=== PATIENT | female | born 1945 | race Caucasian/White ===

== ENCOUNTER 2017-10-21 20:51 | Inpatient (IN) | payer OTHER ==
[~2017-10-21] VITALS: Ht 167.6 cm; Wt 94.0 kg
[~2017-10-21 20:51] MED LIST: ANAPROX DS550 M1 PO; ASPIR 8181 M1 PO; AUGMENTIN875 MG PO; BD ULTRA-FINE1 EACH MC; CELEBREX200 MG PO; CELEXA20 MG PO; CITALOPRAM HBR20 MG PO; Ceftin PO; GABAPENTIN300 MG PO; GLIPIZIDE10 MG PO; GLIPIZIDE5 MG PO; GLUCOMETER MC; GLUCOPHAGE XR1000 MG PO; GLUCOPHAGE1000 MG PO; HUMULIN N100 UNITS/ SC; JANUVIA100 MG PO; LIPITOR40 MG PO; LISINOPRIL2.5 MG PO; PRAVACHOL40 MG PO; PRAVASTATIN SOD40 MG PO; Percocet 5/325,Endoc PO; RANITIDINE HCL300 MG PO; TEST STRIPS MC; TIZANIDINE HCL4 MG PO; TRAMADOL HCL50 MG PO; Toradol PO; ULTRAM50 MG PO; VICODIN 5-3001 EACH PO; ZANTAC300 MG PO; ZESTRIL2.5 MG PO; Zestril,Prinivil PO; celeXA PO
[2017-10-21 21:56] LABS: BASOPHIL (%) 0.2 % (0-1); CARBON DIOXIDE (BICARBONATE) 30.3 MEQ/L (20-31); EOSINOPHIL (%) 0.2 % (0-5); HEMATOCRIT 42.7 % (36.0-46.0); HEMOGLOBIN 14.3 G/DL (11.9-15.5); IMMATURE GRANULOCYTE (%) 0.5 % (0.0-0.7); LYMPHOCYTE (%) 9.7 % (15-42); LYMPHOCYTE COUNT 0.9 K/uL (1.0-2.8); MCH 29.8 PG (29.0-34.0); MCHC 33.5 G/DL (30.0-36.0); MONOCYTE COUNT 0.7 K/uL (0-0.8); NEUTROPHIL (%) 82.4 % (45-76); NEUTROPHIL COUNT 7.8 K/uL (1.8-6.4); PLATELET COUNT 158 K/uL (156-360); RBC DIS.WIDTH-CV 12.5 % (11.8-14.6); RBC DIS.WIDTH-SD 41.2 % (39-53); WHITE BLOOD COUNT 9.4 K/uL (4.1-10.2)
[2017-10-21 22:05] LABS: ALBUMIN 3.6 g/dL (3.2-4.8)
[2017-10-21 22:06] LABS: CHLORIDE 93 mEq/L (99-109); POTASSIUM 4.5 mEq/L (3.7-5.4); SODIUM 132 mEq/L (136-147)
[2017-10-21 22:08] LABS: TOTAL PROTEIN 7.2 g/dL (6.4-8.3)
[2017-10-21 22:10] LABS: TOTAL BILIRUBIN 0.6 mg/dL (0.0-1.0)
[2017-10-21 22:11] LABS: ALKALINE PHOSPHATASE 87 IU/L (3-129)
[2017-10-21 22:12] LABS: CREATININE 1.3 mg/dL (0.6-1.3); GFR ESTIMATE (CALCULATED) 43 mL/min/
[2017-10-21 22:13] LABS: AST (GOT) 16 IU/L (2-34); UREA NITROGEN (BUN) 22 mg/dL (9-23)
[2017-10-21 22:14] LABS: ALT (GPT) 17 IU/L (3-49)
[2017-10-21 22:15] LABS: CREATINE KINASE 217 IU/L (1-294); LIPASE 28 U/L (1.0-51.0)
[2017-10-21 22:17] LABS: TROP-I INTERPRETATION NEGATIVE; TROPONIN-I < 0.01 ng/mL (0.0-0.30)
[2017-10-21 22:27] LABS: GLUCOSE 538 mg/dL (70-99)
[2017-10-21] MEDS ORDERED: MOBIC7.5 MG PO (23:18)
[2017-10-21] MEDS ORDERED: PRAVASTATIN SOD40 MG PO (23:18)
[2017-10-21 23:28] LABS: APPEARANCE CLEAR ((CLEAR)); BILIRUBIN NEGATIVE; BLOOD SMALL; COLOR STRAW ((YELLOW)); GLUCOSE (STRIP) >=500; KETONES 5; LEUKOCYTES TRACE; NITRITE NEGATIVE; PROTEIN (STRIP) NEGATIVE; SPECIFIC GRAVITY 1.026 (1.000-1.030); UROBILINOGEN 0.2 MG/DL (0.2-1.0)
[2017-10-21 23:34] LABS: BACTERIA NONE SEEN /HPF; EPITHELIAL CELLS RARE /HPF; MUCUS TRACE /LPF; RED BLOOD CELLS 0-5 /HPF (0-5); UCUL ADDED? NO; WHITE BLOOD CELLS 0-5 /HPF (0-5)
[2017-10-22 05:03] VITALS: BP 164/77
[2017-10-22 08:10] VITALS: BP 185/84
[2017-10-22 11:52] VITALS: BP 150/70
[2017-10-22 16:55] VITALS: BP 129/57
[2017-10-22 17:11] LABS: BASOPHIL (%) 0.3 % (0-1); EOSINOPHIL (%) 0 % (0-5); HEMOGLOBIN 13.8 G/DL (11.9-15.5); IMMATURE GRANULOCYTE (%) 0.4 % (0.0-0.7); LYMPHOCYTE (%) 6.4 % (15-42); LYMPHOCYTE COUNT 0.7 K/uL (1.0-2.8); MCH 28.9 PG (29.0-34.0); MCHC 32.1 G/DL (30.0-36.0); MCV 90.1 FL (83-99); MONOCYTE (%) 6.8 % (3-12); MONOCYTE COUNT 0.7 K/uL (0-0.8); NEUTROPHIL (%) 86.1 % (45-76); PLATELET COUNT 152 K/uL (156-360); RBC DIS.WIDTH-CV 12.7 % (11.8-14.6); RBC DIS.WIDTH-SD 42.1 % (39-53); RED BLOOD COUNT 4.77 M/uL (3.80-5.20); WHITE BLOOD COUNT 10.4 K/uL (4.1-10.2)
[2017-10-22 19:54] VITALS: BP 140/73
[2017-10-22 23:15] VITALS: BP 91/52
[2017-10-23 03:38] VITALS: BP 133/74
[2017-10-23 05:59] LABS: BASOPHIL (%) 0.2 % (0-1); EOSINOPHIL (%) 0 % (0-5); HEMATOCRIT 38.3 % (36.0-46.0); HEMOGLOBIN 12.5 G/DL (11.9-15.5); IMMATURE GRANULOCYTE (%) 0.7 % (0.0-0.7); LYMPHOCYTE (%) 6.6 % (15-42); LYMPHOCYTE COUNT 0.5 K/uL (1.0-2.8); MCH 29.8 PG (29.0-34.0); MCHC 32.6 G/DL (30.0-36.0); MCV 91.4 FL (83-99); MONOCYTE COUNT 0.6 K/uL (0-0.8); NEUTROPHIL (%) 85.5 % (45-76); NEUTROPHIL COUNT 6.9 K/uL (1.8-6.4); PLATELET COUNT 132 K/uL (156-360); RBC DIS.WIDTH-CV 13.1 % (11.8-14.6); RBC DIS.WIDTH-SD 44.2 % (39-53); RED BLOOD COUNT 4.19 M/uL (3.80-5.20); WHITE BLOOD COUNT 8.1 K/uL (4.1-10.2)
[2017-10-23 06:31] LABS: CHLORIDE 101 MEQ/L (99-109); CREATININE 1.6 MG/DL (0.6-1.3); GFR ESTIMATE (CALCULATED) 34 mL/min/; GLUCOSE 366 mg/dL (70-99); POTASSIUM 3.8 MEQ/L (3.7-5.4); SODIUM 137 MEQ/L (136-147); UREA NITROGEN (BUN) 28 mg/dL (9-23)
[2017-10-23 07:58] VITALS: BP 119/60
[2017-10-23 11:49] VITALS: BP 138/63
[2017-10-23 12:50] LABS: CHLORIDE 102 MEQ/L (99-109); CREATININE 1.5 MG/DL (0.6-1.3); GFR ESTIMATE (CALCULATED) 36 mL/min/; GLUCOSE 363 mg/dL (70-99); POTASSIUM 3.7 MEQ/L (3.7-5.4); SODIUM 136 MEQ/L (136-147); UREA NITROGEN (BUN) 27 mg/dL (9-23)
[2017-10-23 16:00] VITALS: BP 119/59
[2017-10-23 20:17] VITALS: BP 141/65
[2017-10-23 23:40] VITALS: BP 168/72
[2017-10-24 03:29] VITALS: BP 127/59
[2017-10-24 05:30] LABS: HEMATOCRIT 35.8 % (36.0-46.0); HEMOGLOBIN 11.5 G/DL (11.9-15.5); MCH 29.1 PG (29.0-34.0); MCHC 32.1 G/DL (30.0-36.0); MCV 90.6 FL (83-99); PLATELET COUNT 117 K/uL (156-360); RBC DIS.WIDTH-CV 12.7 % (11.8-14.6); RBC DIS.WIDTH-SD 42.6 % (39-53); RED BLOOD COUNT 3.95 M/uL (3.80-5.20)
[2017-10-24 05:57] LABS: ALBUMIN 2.6 G/DL (3.2-4.8); ALKALINE PHOSPHATASE 57 IU/L (3-129); ALT (GPT) 25 IU/L (3-49); AST (GOT) 42 IU/L (2-34); CHLORIDE 103 MEQ/L (99-109); CREATININE 1.3 MG/DL (0.6-1.3); GFR ESTIMATE (CALCULATED) 43 mL/min/; POTASSIUM 3.5 MEQ/L (3.7-5.4); SODIUM 137 MEQ/L (136-147); TOTAL BILIRUBIN 0.4 MG/DL (0.0-1.0); TOTAL PROTEIN 5.4 G/DL (6.4-8.3); UREA NITROGEN (BUN) 24 mg/dL (9-23)
[2017-10-24 05:58] LABS: GLUCOSE 176 mg/dL (70-99)
[2017-10-24 08:06] VITALS: BP 144/67
[2017-10-24] MEDS ORDERED: ASPIR 8181 M1 PO (10:26)
[2017-10-24] MEDS ORDERED: HUMULIN N100 UNITS/ SC (10:26)
[2017-10-24] MEDS ORDERED: TRAMADOL HCL50 MG PO (10:27)
[2017-10-24 11:56] VITALS: BP 152/78
[2017-10-24 18:37] VITALS: BP 143/79
[2017-10-24 20:00] VITALS: BP 178/79
[2017-10-25] VITALS (7 sets, daily range): BP systolic 142–184; BP diastolic 60–96
[2017-10-26 01:00] VITALS: BP 150/80
[2017-10-26 03:42] VITALS: BP 111/56
[2017-10-26 06:46] LABS: HEMATOCRIT 31.7 % (36.0-46.0); HEMOGLOBIN 10.7 G/DL (11.9-15.5); MCH 30.1 PG (29.0-34.0); MCHC 33.8 G/DL (30.0-36.0); MCV 89.3 FL (83-99); PLATELET COUNT 135 K/uL (156-360); RBC DIS.WIDTH-CV 12.5 % (11.8-14.6); RBC DIS.WIDTH-SD 41.2 % (39-53); RED BLOOD COUNT 3.55 M/uL (3.80-5.20); WHITE BLOOD COUNT 6.3 K/uL (4.1-10.2)
[2017-10-26 07:16] LABS: ALBUMIN 2.4 G/DL (3.2-4.8); ALKALINE PHOSPHATASE 63 IU/L (3-129); ALT (GPT) 20 IU/L (3-49); CHLORIDE 103 MEQ/L (99-109); GLUCOSE 195 mg/dL (70-99); POTASSIUM 3.5 MEQ/L (3.7-5.4); SODIUM 138 MEQ/L (136-147); TOTAL PROTEIN 4.6 G/DL (6.4-8.3); UREA NITROGEN (BUN) 13 mg/dL (9-23)
[2017-10-26 07:17] LABS: AST (GOT) 20 IU/L (2-34); CREATININE 0.8 MG/DL (0.6-1.3); GFR ESTIMATE (CALCULATED) > 59 mL/min/; TOTAL BILIRUBIN 0.3 MG/DL (0.0-1.0)
[2017-10-26 07:39] VITALS: BP 166/77
[2017-10-26 17:17] VITALS: BP 137/65
[2017-10-26 17:32] LABS: HEMATOCRIT 30.9 % (36.0-46.0); HEMOGLOBIN 9.9 G/DL (11.9-15.5); MCH 28.8 PG (29.0-34.0); MCV 89.8 FL (83-99); PLATELET COUNT 134 K/uL (156-360); RBC DIS.WIDTH-CV 12.6 % (11.8-14.6); RBC DIS.WIDTH-SD 41.2 % (39-53); RED BLOOD COUNT 3.44 M/uL (3.80-5.20); WHITE BLOOD COUNT 5.5 K/uL (4.1-10.2)
[2017-10-26 18:03] LABS: STOOL OCCULT BLD 1ST SPECIMEN POSITIVE
[2017-10-26 18:31] LABS: C DIFF TOXIN NEGATIVE (NEGATIVE)
[2017-10-26 20:25] VITALS: BP 163/76
[2017-10-26 23:55] VITALS: BP 165/74
[2017-10-27] VITALS (27 sets, daily range): BP systolic 71–122; BP diastolic 37–74
[2017-10-27 04:46] LABS: HEMATOCRIT 26.2 % (36.0-46.0); HEMOGLOBIN 8.9 G/DL (11.9-15.5); MCH 29.9 PG (29.0-34.0); MCV 87.9 FL (83-99); RBC DIS.WIDTH-CV 12.4 % (11.8-14.6); RBC DIS.WIDTH-SD 40.1 % (39-53); RED BLOOD COUNT 2.98 M/uL (3.80-5.20)
[2017-10-27 04:51] LABS: PLATELET COUNT 211 K/uL (156-360)
[2017-10-27 04:58] LABS: ALBUMIN 2.4 g/dL (3.2-4.8); CHLORIDE 100 mEq/L (99-109)
[2017-10-27 04:59] LABS: POTASSIUM 4.1 mEq/L (3.7-5.4); SODIUM 137 mEq/L (136-147)
[2017-10-27 05:01] LABS: GLUCOSE 237 mg/dL (70-99)
[2017-10-27 05:04] LABS: ALKALINE PHOSPHATASE 73 IU/L (3-129); CREATININE 0.9 mg/dL (0.6-1.3); GFR ESTIMATE (CALCULATED) > 59 mL/min/
[2017-10-27 05:06] LABS: UREA NITROGEN (BUN) 18 mg/dL (9-23)
[2017-10-27 05:07] LABS: ALT (GPT) 27 IU/L (3-49)
[2017-10-27 05:17] LABS: AST (GOT) 28 IU/L (2-34); TOTAL BILIRUBIN 0.3 mg/dL (0.0-1.0); TOTAL PROTEIN 4.6 g/dL (6.4-8.3)
[2017-10-27 06:32] LABS: ERTH.SED.RATE 51 MM/HR (0-30)
[2017-10-27 08:56] LABS: HEMATOCRIT 22.2 % (36.0-46.0); HEMOGLOBIN 7.4 G/DL (11.9-15.5); MCH 30.1 PG (29.0-34.0); MCHC 33.3 G/DL (30.0-36.0); MCV 90.2 FL (83-99); PLATELET COUNT 165 K/uL (156-360); RBC DIS.WIDTH-CV 12.6 % (11.8-14.6); RBC DIS.WIDTH-SD 41.4 % (39-53); RED BLOOD COUNT 2.46 M/uL (3.80-5.20); WHITE BLOOD COUNT 7.4 K/uL (4.1-10.2)
[2017-10-27 19:18] LABS: HEMATOCRIT 22.9 % (36.0-46.0); HEMOGLOBIN 7.8 G/DL (11.9-15.5)
[2017-10-27 19:19] LABS: MCV 85.4 FL (83-99)
[2017-10-27 20:10] LABS: HEMATOCRIT 22.5 % (36.0-46.0); HEMOGLOBIN 7.8 G/DL (11.9-15.5); MCH 29.3 PG (29.0-34.0); MCHC 34.7 G/DL (30.0-36.0); MCV 84.6 FL (83-99); PLATELET COUNT 174 K/uL (156-360); RBC DIS.WIDTH-CV 14.1 % (11.8-14.6); RBC DIS.WIDTH-SD 43.2 % (39-53); RED BLOOD COUNT 2.66 M/uL (3.80-5.20); WHITE BLOOD COUNT 10.9 K/uL (4.1-10.2)
[2017-10-27 20:22] LABS: INTER. NORMALIZED RATIO 1.2
[2017-10-27 20:25] LABS: PTT 27.4 SEC (25-37)
[2017-10-27 23:37] LABS: HEMOGLOBIN 9.4 G/DL (11.9-15.5); MCH 29.7 PG (29.0-34.0); MCHC 34.8 G/DL (30.0-36.0); MCV 85.4 FL (83-99); NRBC (%) 0.2 /100 WBC (0-0); PLATELET COUNT 158 K/uL (156-360); RBC DIS.WIDTH-SD 43.9 % (39-53); RED BLOOD COUNT 3.16 M/uL (3.80-5.20); WHITE BLOOD COUNT 12.7 K/uL (4.1-10.2)
[2017-10-28] VITALS (19 sets, daily range): BP systolic 92–149; BP diastolic 45–78
[2017-10-28 04:55] LABS: HEMATOCRIT 23.4 % (36.0-46.0); HEMOGLOBIN 8.2 G/DL (11.9-15.5); MCH 29.5 PG (29.0-34.0); MCV 84.2 FL (83-99); NRBC (%) 0.2 /100 WBC (0-0); PLATELET COUNT 152 K/uL (156-360); RBC DIS.WIDTH-CV 14.2 % (11.8-14.6); RBC DIS.WIDTH-SD 43.9 % (39-53); RED BLOOD COUNT 2.78 M/uL (3.80-5.20); WHITE BLOOD COUNT 11.3 K/uL (4.1-10.2)
[2017-10-28 05:12] LABS: CHLORIDE 106 mEq/L (99-109); POTASSIUM 3.6 mEq/L (3.7-5.4); SODIUM 139 mEq/L (136-147)
[2017-10-28 05:14] LABS: GLUCOSE 172 mg/dL (70-99)
[2017-10-28 05:17] LABS: CREATININE 0.8 mg/dL (0.6-1.3); GFR ESTIMATE (CALCULATED) > 59 mL/min/
[2017-10-28 05:18] LABS: UREA NITROGEN (BUN) 18 mg/dL (9-23)
[2017-10-28 08:36] LABS: MAGNESIUM 1.5 mg/dL (1.3-2.7)
[2017-10-28 12:31] LABS: HEMATOCRIT 26.3 % (36.0-46.0); HEMOGLOBIN 9.1 G/DL (11.9-15.5); MCV 86.8 FL (83-99)
[2017-10-28 12:37] LABS: INTER. NORMALIZED RATIO 1.1
[2017-10-28 12:40] LABS: PTT 26.3 SEC (25-37)
[2017-10-28 17:16] LABS: HEMATOCRIT 29.3 % (36.0-46.0); HEMOGLOBIN 10.1 G/DL (11.9-15.5); MCH 29.9 PG (29.0-34.0); MCHC 34.5 G/DL (30.0-36.0); MCV 86.7 FL (83-99); NRBC (%) 0.1 /100 WBC (0-0); PLATELET COUNT 197 K/uL (156-360); RBC DIS.WIDTH-CV 14.6 % (11.8-14.6); RBC DIS.WIDTH-SD 46.5 % (39-53); WHITE BLOOD COUNT 14.9 K/uL (4.1-10.2)
[2017-10-28 17:20] LABS: RED BLOOD COUNT 3.38 M/uL (3.80-5.20)
[2017-10-29] VITALS (23 sets, daily range): BP systolic 131–201; BP diastolic 54–87
[2017-10-29 06:01] LABS: BASOPHIL (%) 0.4 % (0-1); BASOPHIL COUNT 0.1 K/uL (0-0.1); EOSINOPHIL (%) 2.8 % (0-5); EOSINOPHIL COUNT 0.3 K/uL (0-0.3); HEMATOCRIT 26.1 % (36.0-46.0); HEMOGLOBIN 8.7 G/DL (11.9-15.5); IMMATURE GRANULOCYTE (%) 4.7 % (0.0-0.7); LYMPHOCYTE (%) 13.4 % (15-42); LYMPHOCYTE COUNT 1.5 K/uL (1.0-2.8); MCH 28.9 PG (29.0-34.0); MCHC 33.3 G/DL (30.0-36.0); MCV 86.7 FL (83-99); MONOCYTE (%) 5.8 % (3-12); MONOCYTE COUNT 0.7 K/uL (0-0.8); NEUTROPHIL (%) 72.9 % (45-76); NEUTROPHIL COUNT 8.4 K/uL (1.8-6.4); PLATELET COUNT 198 K/uL (156-360); RBC DIS.WIDTH-CV 14.5 % (11.8-14.6); RBC DIS.WIDTH-SD 45.4 % (39-53); RED BLOOD COUNT 3.01 M/uL (3.80-5.20); WHITE BLOOD COUNT 11.5 K/uL (4.1-10.2)
[2017-10-29 06:27] LABS: CHLORIDE 104 MEQ/L (99-109); CREATININE 0.8 MG/DL (0.6-1.3); GFR ESTIMATE (CALCULATED) > 59 mL/min/; GLUCOSE 198 mg/dL (70-99); MAGNESIUM 1.6 mg/dl (1.3-2.7); PHOSPHORUS 3.4 mg/dL (2.5-4.9); SODIUM 138 MEQ/L (136-147); UREA NITROGEN (BUN) 11 mg/dL (9-23)
[2017-10-29 06:29] LABS: POTASSIUM 4.6 MEQ/L (3.7-5.4)
[2017-10-29 20:31] LABS: HEMOGLOBIN 8.5 G/DL (11.9-15.5); MCH 30.1 PG (29.0-34.0); MCV 88.7 FL (83-99); PLATELET COUNT 201 K/uL (156-360); RBC DIS.WIDTH-CV 14.4 % (11.8-14.6); RBC DIS.WIDTH-SD 45.4 % (39-53); RED BLOOD COUNT 2.82 M/uL (3.80-5.20); WHITE BLOOD COUNT 10.3 K/uL (4.1-10.2)
[2017-10-30] VITALS (12 sets, daily range): BP systolic 136–167; BP diastolic 61–82
[2017-10-30 05:31] LABS: HEMATOCRIT 23.8 % (36.0-46.0); HEMOGLOBIN 7.9 G/DL (11.9-15.5); MCH 29.2 PG (29.0-34.0); MCHC 33.2 G/DL (30.0-36.0); MCV 87.8 FL (83-99); PLATELET COUNT 213 K/uL (156-360); RBC DIS.WIDTH-CV 14.2 % (11.8-14.6); RED BLOOD COUNT 2.71 M/uL (3.80-5.20); WHITE BLOOD COUNT 9.7 K/uL (4.1-10.2)
[2017-10-30 05:54] LABS: CHLORIDE 100 MEQ/L (99-109); CREATININE 0.8 MG/DL (0.6-1.3); GFR ESTIMATE (CALCULATED) > 59 mL/min/; GLUCOSE 181 mg/dL (70-99); POTASSIUM 4.2 MEQ/L (3.7-5.4); SODIUM 135 MEQ/L (136-147); UREA NITROGEN (BUN) 6 mg/dL (9-23)
[2017-10-30 20:48] LABS: HEMATOCRIT 23.7 % (36.0-46.0); HEMOGLOBIN 7.8 G/DL (11.9-15.5); MCH 29.3 PG (29.0-34.0); MCHC 32.9 G/DL (30.0-36.0); MCV 89.1 FL (83-99); PLATELET COUNT 219 K/uL (156-360); RBC DIS.WIDTH-CV 14.5 % (11.8-14.6); RBC DIS.WIDTH-SD 45.9 % (39-53); RED BLOOD COUNT 2.66 M/uL (3.80-5.20); WHITE BLOOD COUNT 9.7 K/uL (4.1-10.2)
[2017-10-31] VITALS (7 sets, daily range): BP systolic 123–179; BP diastolic 56–88
[2017-10-31 05:08] LABS: BASOPHIL (%) 0.4 % (0-1); EOSINOPHIL (%) 3.6 % (0-5); EOSINOPHIL COUNT 0.3 K/uL (0-0.3); HEMATOCRIT 23.7 % (36.0-46.0); HEMOGLOBIN 7.8 G/DL (11.9-15.5); IMMATURE GRANULOCYTE (%) 2.1 % (0.0-0.7); LYMPHOCYTE (%) 19.1 % (15-42); LYMPHOCYTE COUNT 1.5 K/uL (1.0-2.8); MCH 29.9 PG (29.0-34.0); MCHC 32.9 G/DL (30.0-36.0); MCV 90.8 FL (83-99); MONOCYTE (%) 7.4 % (3-12); MONOCYTE COUNT 0.6 K/uL (0-0.8); NEUTROPHIL (%) 67.4 % (45-76); NEUTROPHIL COUNT 5.4 K/uL (1.8-6.4); PLATELET COUNT 219 K/uL (156-360); RBC DIS.WIDTH-CV 14.5 % (11.8-14.6); RBC DIS.WIDTH-SD 45.6 % (39-53); RED BLOOD COUNT 2.61 M/uL (3.80-5.20)
[2017-10-31 05:35] LABS: ALBUMIN 2.3 G/DL (3.2-4.8); ALKALINE PHOSPHATASE 41 IU/L (3-129); ALT (GPT) 13 IU/L (3-49); AST (GOT) 10 IU/L (2-34); CHLORIDE 101 MEQ/L (99-109); CREATININE 0.9 MG/DL (0.6-1.3); GFR ESTIMATE (CALCULATED) > 59 mL/min/; GLUCOSE 178 mg/dL (70-99); SODIUM 137 MEQ/L (136-147); TOTAL BILIRUBIN 0.4 MG/DL (0.0-1.0); TOTAL PROTEIN 4.9 G/DL (6.4-8.3); UREA NITROGEN (BUN) 4 mg/dL (9-23)
[2017-10-31 18:02] LABS: C DIFF TOXIN NEGATIVE (NEGATIVE)
[2017-11-01 04:16] VITALS: BP 144/64
[2017-11-01 07:50] LABS: BASOPHIL (%) 0.5 % (0-1); EOSINOPHIL (%) 4.2 % (0-5); EOSINOPHIL COUNT 0.4 K/uL (0-0.3); HEMATOCRIT 24.2 % (36.0-46.0); HEMOGLOBIN 7.7 G/DL (11.9-15.5); LYMPHOCYTE (%) 17.4 % (15-42); LYMPHOCYTE COUNT 1.5 K/uL (1.0-2.8); MCH 28.9 PG (29.0-34.0); MCHC 31.8 G/DL (30.0-36.0); MONOCYTE (%) 6.2 % (3-12); MONOCYTE COUNT 0.5 K/uL (0-0.8); NEUTROPHIL (%) 68.7 % (45-76); NEUTROPHIL COUNT 5.9 K/uL (1.8-6.4); RBC DIS.WIDTH-CV 14.6 % (11.8-14.6); RBC DIS.WIDTH-SD 46.3 % (39-53); RED BLOOD COUNT 2.66 M/uL (3.80-5.20); WHITE BLOOD COUNT 8.6 K/uL (4.1-10.2)
[2017-11-01 07:55] LABS: PLATELET COUNT 285 K/uL (156-360)
[2017-11-01 08:16] LABS: ALBUMIN 2.2 G/DL (3.2-4.8); ALKALINE PHOSPHATASE 43 IU/L (3-129); ALT (GPT) 12 IU/L (3-49); AST (GOT) 10 IU/L (2-34); CHLORIDE 103 MEQ/L (99-109); CREATININE 0.9 MG/DL (0.6-1.3); GFR ESTIMATE (CALCULATED) > 59 mL/min/; GLUCOSE 219 mg/dL (70-99); POTASSIUM 4.5 MEQ/L (3.7-5.4); SODIUM 137 MEQ/L (136-147); TOTAL BILIRUBIN 0.4 MG/DL (0.0-1.0); TOTAL PROTEIN 4.7 G/DL (6.4-8.3); UREA NITROGEN (BUN) 4 mg/dL (9-23)
[2017-11-01 08:23] VITALS: BP 153/72
[2017-11-01 16:28] VITALS: BP 160/68
[2017-11-01 19:39] VITALS: BP 143/65
[2017-11-01 23:51] VITALS: BP 142/79
[2017-11-02 04:18] VITALS: BP 149/74
[2017-11-02 06:09] LABS: ALBUMIN 2.4 G/DL (3.2-4.8); ALKALINE PHOSPHATASE 47 IU/L (3-129); ALT (GPT) 13 IU/L (3-49); AST (GOT) 11 IU/L (2-34); CHLORIDE 102 MEQ/L (99-109); CREATININE 0.8 MG/DL (0.6-1.3); GFR ESTIMATE (CALCULATED) > 59 mL/min/; GLUCOSE 169 mg/dL (70-99); SODIUM 138 MEQ/L (136-147); TOTAL PROTEIN 5.2 G/DL (6.4-8.3); UREA NITROGEN (BUN) 5 mg/dL (9-23)
[2017-11-02 06:11] LABS: TOTAL BILIRUBIN 0.3 MG/DL (0.0-1.0)
[2017-11-02 07:13] LABS: BASOPHIL (%) 0.6 % (0-1); BASOPHIL COUNT 0.1 K/uL (0-0.1); EOSINOPHIL (%) 4.6 % (0-5); EOSINOPHIL COUNT 0.4 K/uL (0-0.3); HEMATOCRIT 24.9 % (36.0-46.0); HEMOGLOBIN 7.8 G/DL (11.9-15.5); LYMPHOCYTE (%) 23.4 % (15-42); LYMPHOCYTE COUNT 1.9 K/uL (1.0-2.8); MCH 28.6 PG (29.0-34.0); MCHC 31.3 G/DL (30.0-36.0); MCV 91.2 FL (83-99); MONOCYTE (%) 5.9 % (3-12); MONOCYTE COUNT 0.5 K/uL (0-0.8); NEUTROPHIL (%) 62.5 % (45-76); NEUTROPHIL COUNT 5.1 K/uL (1.8-6.4); PLATELET COUNT 310 K/uL (156-360); RBC DIS.WIDTH-CV 14.4 % (11.8-14.6); RBC DIS.WIDTH-SD 46.5 % (39-53); RED BLOOD COUNT 2.73 M/uL (3.80-5.20); WHITE BLOOD COUNT 8.2 K/uL (4.1-10.2)
[2017-11-02 09:20] VITALS: BP 164/69
[2017-11-03 00:01] VITALS: BP 141/67
[2017-11-03 06:03] LABS: BASOPHIL (%) 0.3 % (0-1); EOSINOPHIL (%) 3.6 % (0-5); EOSINOPHIL COUNT 0.4 K/uL (0-0.3); HEMATOCRIT 27.2 % (36.0-46.0); HEMOGLOBIN 8.8 G/DL (11.9-15.5); IMMATURE GRANULOCYTE (%) 1.6 % (0.0-0.7); LYMPHOCYTE (%) 8.7 % (15-42); MCH 29.5 PG (29.0-34.0); MCHC 32.4 G/DL (30.0-36.0); MCV 91.3 FL (83-99); MONOCYTE (%) 3.9 % (3-12); MONOCYTE COUNT 0.5 K/uL (0-0.8); NEUTROPHIL (%) 81.9 % (45-76); NEUTROPHIL COUNT 9.4 K/uL (1.8-6.4); PLATELET COUNT 391 K/uL (156-360); RBC DIS.WIDTH-CV 14.6 % (11.8-14.6); RBC DIS.WIDTH-SD 47.5 % (39-53); RED BLOOD COUNT 2.98 M/uL (3.80-5.20); WHITE BLOOD COUNT 11.6 K/uL (4.1-10.2)
[2017-11-03 06:30] LABS: ALBUMIN 2.5 G/DL (3.2-4.8); ALKALINE PHOSPHATASE 52 IU/L (3-129); ALT (GPT) 13 IU/L (3-49); AST (GOT) 11 IU/L (2-34); CHLORIDE 101 MEQ/L (99-109); GFR ESTIMATE (CALCULATED) 58 mL/min/; GLUCOSE 193 mg/dL (70-99); POTASSIUM 4.4 MEQ/L (3.7-5.4); SODIUM 135 MEQ/L (136-147); TOTAL BILIRUBIN 0.4 MG/DL (0.0-1.0); TOTAL PROTEIN 5.3 G/DL (6.4-8.3); UREA NITROGEN (BUN) 8 mg/dL (9-23)
[2017-11-03 07:59] LABS: Estimated Average Glucose 163 mg/dL (70-123); HEMOGLOBIN A1c (GLYCOHEMOGLOB) 7.3 % HGB (Below 5.7)
[2017-11-03 08:19] VITALS: BP 138/69
[2017-11-03 11:14] VITALS: BP 129/68
[2017-11-03 15:29] VITALS: BP 128/60
[2017-11-03 19:41] VITALS: BP 130/60
[2017-11-03 23:20] VITALS: BP 122/81
[2017-11-04 04:59] VITALS: BP 117/64
[2017-11-04 06:27] LABS: BASOPHIL (%) 0.5 % (0-1); EOSINOPHIL (%) 4.7 % (0-5); EOSINOPHIL COUNT 0.4 K/uL (0-0.3); HEMOGLOBIN 8.4 G/DL (11.9-15.5); IMMATURE GRANULOCYTE (%) 1.7 % (0.0-0.7); LYMPHOCYTE COUNT 1.7 K/uL (1.0-2.8); MCH 28.6 PG (29.0-34.0); MCHC 31.1 G/DL (30.0-36.0); MCV 91.8 FL (83-99); MONOCYTE (%) 6.7 % (3-12); MONOCYTE COUNT 0.5 K/uL (0-0.8); NEUTROPHIL (%) 64.4 % (45-76); PLATELET COUNT 364 K/uL (156-360); RBC DIS.WIDTH-CV 14.6 % (11.8-14.6); RBC DIS.WIDTH-SD 48.1 % (39-53); RED BLOOD COUNT 2.94 M/uL (3.80-5.20); WHITE BLOOD COUNT 7.7 K/uL (4.1-10.2)
[2017-11-04 06:34] LABS: CHLORIDE 103 MEQ/L (99-109); GFR ESTIMATE (CALCULATED) 58 mL/min/; GLUCOSE 140 mg/dL (70-99); POTASSIUM 4.1 MEQ/L (3.7-5.4); SODIUM 138 MEQ/L (136-147); UREA NITROGEN (BUN) 11 mg/dL (9-23)
[2017-11-04 07:32] LABS: ALBUMIN 2.5 G/DL (3.2-4.8); ALKALINE PHOSPHATASE 50 IU/L (3-129); ALT (GPT) 11 IU/L (3-49); AST (GOT) 10 IU/L (2-34); CHLORIDE 102 MEQ/L (99-109); CREATININE 1.1 MG/DL (0.6-1.3); GFR ESTIMATE (CALCULATED) 52 mL/min/; GLUCOSE 143 mg/dL (70-99); SODIUM 139 MEQ/L (136-147); TOTAL PROTEIN 5.6 G/DL (6.4-8.3); UREA NITROGEN (BUN) 10 mg/dL (9-23)
[2017-11-04 07:34] LABS: TOTAL BILIRUBIN 0.3 MG/DL (0.0-1.0)
[2017-11-04 07:44] VITALS: BP 145/70
[2017-11-04 12:04] VITALS: BP 98/54
[2017-11-04 15:11] VITALS: BP 143/69
[2017-11-04] MEDS ORDERED: LOPRESSOR25 MG PO (15:46)
[2017-11-04] MEDS ORDERED: FLUCONAZOLE200 MG PO (15:46)
[2017-11-04] MEDS ORDERED: BACTRIM,SEPT1 TABLET PO (15:46)
[2017-11-04] MEDS ORDERED: PANTOPRAZOLE SO40 MG PO (15:46)
[2017-11-04] MEDS ORDERED: NIFEREX-150,FE150 MG PO (15:46)
== END 2017-11-04 18:48 | DRG 668 ==
LOC: EME 20:51 → 4WEST 10-22 02:30 → 3EAST 10-22 02:30 → EDOF 10-22 02:30 → ENRESERV 10-22 02:31 → 3EAST 10-22 04:48 → ENRESERV 10-27 08:27 → 4WEST 10-27 10:20 → ENRESERV 10-30 06:39 → 4EAST 10-30 14:26 → ENRESERV 10-31 17:49 → 3EAST 10-31 20:17
PROVIDERS: Emergency Medicine; Hospitalist; Internal Medicine Gastroenterology; Pediatrics; Physician Assistant; Specialist; Surgery
PROC: 0T778DZ Dilation of Left Ureter with Intraluminal Device, Via Natural or Artificial Opening Endoscopic (ICD-10-PCS; principal; 2017-10-24)
PROC: 0TC78ZZ Extirpation of Matter from Left Ureter, Via Natural or Artificial Opening Endoscopic (ICD-10-PCS; principal; 2017-10-24)
PROC: BT171ZZ Fluoroscopy of Left Ureter using Low Osmolar Contrast (ICD-10-PCS; principal; 2017-10-24)
PROC: 0DJ08ZZ Inspection of Upper Intestinal Tract, Via Natural or Artificial Opening Endoscopic (ICD-10-PCS; 2017-10-27)
PROC: 0W3P8ZZ Control Bleeding in Gastrointestinal Tract, Via Natural or Artificial Opening Endoscopic (ICD-10-PCS; 2017-10-27)
PROC: 30233N1 Transfusion of Nonautologous Red Blood Cells into Peripheral Vein, Percutaneous Approach (ICD-10-PCS; 2017-10-27)
PROC: 0D870ZZ Division of Stomach, Pylorus, Open Approach (ICD-10-PCS; 2017-10-28)
PROC: 0DQ90ZZ Repair Duodenum, Open Approach (ICD-10-PCS; 2017-10-28)
PROC: 0DNU0ZZ Release Omentum, Open Approach (ICD-10-PCS; 2017-10-28)
PROC: 02HV33Z Insertion of Infusion Device into Superior Vena Cava, Percutaneous Approach (ICD-10-PCS; 2017-10-28)
PROC: 0DN90ZZ Release Duodenum, Open Approach (ICD-10-PCS; 2017-10-28)
DX: N13.6 Pyonephrosis (principal); B37.7 Candidal sepsis; K26.4 Chronic or unspecified duodenal ulcer with hemorrhage; D62 Acute posthemorrhagic anemia; N17.9 Acute kidney failure, unspecified; G93.40 Encephalopathy, unspecified; N30.20 Other chronic cystitis without hematuria; K25.7 Chronic gastric ulcer without hemorrhage or perforation; K66.0 Peritoneal adhesions (postprocedural) (postinfection); D69.6 Thrombocytopenia, unspecified; I10 Essential (primary) hypertension; E11.65 Type 2 diabetes mellitus with hyperglycemia; E66.01 Morbid (severe) obesity due to excess calories; E86.0 Dehydration; E87.6 Hypokalemia; Z68.36 Body mass index [BMI] 36.0-36.9, adult; J44.9 Chronic obstructive pulmonary disease, unspecified; E78.5 Hyperlipidemia, unspecified; K21.9 Gastro-esophageal reflux disease without esophagitis; I08.0 Rheumatic disorders of both mitral and aortic valves; I87.8 Other specified disorders of veins; K52.9 Noninfective gastroenteritis and colitis, unspecified; K57.90 Diverticulosis of intestine, part unspecified, without perforation or abscess without bleeding; G89.18 Other acute postprocedural pain; G89.29 Other chronic pain; M54.5 Low back pain; M17.12 Unilateral primary osteoarthritis, left knee; F32.9 Major depressive disorder, single episode, unspecified; Z91.19 Patient's noncompliance with other medical treatment and regimen; Z60.2 Problems related to living alone; Z91.81 History of falling; Z79.84 Long term (current) use of oral hypoglycemic drugs; Z79.82 Long term (current) use of aspirin; Z79.1 Long term (current) use of non-steroidal anti-inflammatories (NSAID); Z87.442 Personal history of urinary calculi; Z87.891 Personal history of nicotine dependence; Z90.49 Acquired absence of other specified parts of digestive tract; Z90.710 Acquired absence of both cervix and uterus; Z96.652 Presence of left artificial knee joint; Z80.41 Family history of malignant neoplasm of ovary
CPT/HCPCS: 70450; 70551; 71010; 71045; 72125; 74000; 74177; 80048; 80048 91; 80053; 81003; 82140; 82272; 82330; 82550; 82803; 82948; 83036; 83605; 83630; 83690; 83735; 84100; 84484; 85014; 85018; 85025; 85027; 85610; 85651; 85730; 86850; 86900; 86901; 86920; 87040; 87086; 87149; 87149 59; 87186 90; 87493; 87506; 87641; 93005; 93306; 94799; 97530 GO; 97530 GP; 99281; 99285; C1753; C1769; C2625; C9113; J0131; J0330; J0610; J0696; J1100; J1170; J1644; J1815; J1885; J2248; J2250; J2405; J2704; J2710; J2765; J2997; J3010; J7030; J7050; J7120; P9016; S0074